=== PATIENT | male | born 1980 | race Caucasian/White ===

== ENCOUNTER 2020-06-22 15:06 | Outpatient (CLI) | payer OTHER, SELFPAY ==
--- NOTE | 2020-06-22 15:10 | ECG_ITS ---
Measurements Intervals [place] Rate: 87 P: 38 [place]: 155 QRS: -20 QRSD: 105 T: 11 QT: 358 QTc: 431 Interpretive Statements SINUS RHYTHM EARLY PRECORDIAL R/S TRANSITION MINIMAL Q WAVES- HIGH LATERAL LEADS BORDERLINE T WAVE ABNORMALITY- INFERIOR LEADS BORDERLINE ECG Electronically Signed On 06-22-2020 15:52:21 CDT by Peng Ponce D.O.
== END 2020-06-22 15:07 | disposition home or self-care (01) ==
LOC: ANHSURGERY 15:09
PROVIDERS: PCP Emergency Medicine; Visit Provider Otolaryngology
DX: I25.2 Old myocardial infarction (principal); R94.31 Abnormal electrocardiogram [ECG] [EKG]
CPT/HCPCS: 93005

== ENCOUNTER 2020-06-26 01:26 | Outpatient (CLI) | payer OTHER, SELFPAY ==
[2020-06-26 18:35] LABS: SARS-CoV-2 RNA PCR Negative
== END 2020-06-26 01:27 | disposition home or self-care (01) ==
LOC: ANHCOVIDDT 01:26
PROVIDERS: PCP Emergency Medicine; Visit Provider Otolaryngology
DX: Z01.812 Encounter for preprocedural laboratory examination (principal); Z11.59 Encounter for screening for other viral diseases
CPT/HCPCS: 87635; C9803; U0003

== ENCOUNTER 2020-06-28 01:12 | Day surgery (SDC) | payer OTHER, SELFPAY ==
[2020-06-15 10:47] VITALS: BMI 36.9
--- NOTE | 2020-06-26 08:11 | PM.HPGS ---
History of Present Illness History of Present Illness Consent: Risks, benefits, and alternatives have been discussed and questions answered. Patient agrees to proceed with procedure. Chief complaint: Sialadenitis Narrative: Ever Remy is a 40 year old male Who has bilateral submandibular swelling when he eats he has had a CT scan plan plan is to open up both the salivary gland ducts Review of Systems Review of Systems: All systems reviewed & are unremarkable except as noted in HPI and below PMFSH Social History Social History Smoking status: Never smoker Alcohol intake: current Drinks per week: 2 Spiritual care concerns: No Meds Home Medications and Allergies Home Medications Medication Instructions Recorded Confirmed Type acetaminophen 500 mg capsule 500 mg PO Q6H PRN 06/11/20 06/15/20 History clopidogrel 75 mg tablet 75 mg PO DAILY 06/11/20 06/15/20 History Vitamin B-12 1 tablet PO DAILY 06/15/20 06/15/20 History Vitamin D3 1 tablet PO DAILY 06/15/20 06/15/20 History Allergies Allergy/AdvReac Type Severity Reaction Status Date / Time No Known Allergies Allergy Verified 06/15/20 10:48
[2020-06-28] VITALS (7 sets, daily range): BP systolic 115–145; BP diastolic 66–82; PULSE 67–89; RESP 16–20; TEMP 36.4; O2SAT 96–99
--- NOTE | 2020-06-28 05:57 | WPDHPUPDATE1 ---
History and Physical Update Update Date/Time: 06/28/20 05:57 History and Physical has been reviewed, including an updated exam of the patient. There are NO changes in the patient's condition. Risks, benefits, and alternatives have been discussed and questions answered. Patient agrees to proceed with procedure.
[2020-06-28] MEDS: LACTATED RINGERS 1,000 ML 30 ML IV CONT (06:30)
--- NOTE | 2020-06-28 06:53 | P.PNAN_ITS ---
Anes - Initial Pre Proc Eval Procedure: Operation Date: 06/28/20 07:30 Proposed Procedures p Bilateral Sialodochoplasty - Arnaud Sanchez MD Date/Time: 06/28/20 06:53 Surgeon: Arnaud Sanchez MD Pre Op Diagnosis: Sialadenitis Patient Data Age: 40 Gender: M Height: 5 ft 9 in Weight: 116.4 kg Last Vital Signs Temp 97.5 F L 06/28/20 06:08 Pulse 67 06/28/20 06:08 Resp 20 06/28/20 06:08 BP 145/77 H 06/28/20 06:08 Pulse Ox 98 06/28/20 06:08 Allergies Allergy/AdvReac Type Severity Reaction Status Date / Time No Known Allergies Allergy Verified 06/28/20 06:44 Home Medications Medication Instructions Recorded Confirmed Type acetaminophen 500 mg capsule 500 mg PO Q6H PRN 06/11/20 06/28/20 History clopidogrel 75 mg tablet 75 mg PO DAILY 06/11/20 06/28/20 History Vitamin B-12 1 tablet PO DAILY 06/15/20 06/28/20 History Vitamin D3 1 tablet PO DAILY 06/15/20 06/28/20 History Patient hx anesthesia problems: none Family hx anesthesia problems: none [facility] Past Medical History Medical History (Updated 06/28/20 @ 06:53 by Ambrose Jimenez MD) CAD (coronary artery disease) has one stent KEYLA (obstructive sleep apnea) Social History Social History Smoking status: Never smoker Alcohol intake: current Drinks per week: 2 Spiritual care concerns: No Anes - Eval Final PreProcedure Day of Procedure 06/28/20 06:53 Patient weight: obese Heart: regular rate and rhythm Lungs: clear to auscultation Airway: Mallampati scale class III Neurological: alert and oriented Last oral intake: >/= 8 hours ASA classification: III Emergent: no Anesthetic plan: proceed Anesthesia type and monitoring: general ETT and standard monitoring Informed Consent: The patient's anesthetic plan and its attendant risks and benefits were discussed with the patient/family/POA. Questions were solicited and answers provided to the satisfaction of the patient/family/POA.
[2020-06-28] MEDS: LIDO 1%/EPINEPHRINE 1:100,000 20 ML VIAL INFILTRATE (07:15)
--- NOTE | 2020-06-28 07:44 | PM.PROC ---
Procedure Note - Detailed Date of procedure: 06/28/20 Pre-op diagnosis: Sialadenitis Bilateral sialoadenitis stone left salivary duct Post-op diagnosis: same Procedure performed: duct plasty on both sides removal stone left Description of procedure: patient was prepped and draped fashion general anesthesia on the left side the opening of the duct was ascertained and a pro placed in the duct open a large stone was removed on the left side the opening could not be found the area was opened up no stone was obtained patient awakened returned to recovery in good co Anesthesia: GLMA Surgeon: Arnaud Sanchez MD Estimated blood loss (mL): 10 Drains: No Packing: No Pathology: yes Complications: No immediate complications Condition: stable Disposition: PACU Findings: large stone left [place] duct
--- NOTE | 2020-06-28 08:42 | SUR.PHASEI ---
PT AWAKE AND ALERT. DENIES PAIN. STATES MILD HEADACHE. TOLERABLE. NO BLEEDING FROM MOUTH. PT TALKATIVE.
== END 2020-06-28 09:26 | disposition home or self-care (01) ==
PROVIDERS: PCP Emergency Medicine; Visit Provider Otolaryngology
PROC: (CPT 42699; principal; 2020-06-28 07:30)
DX: K11.20 Sialoadenitis, unspecified (principal); K11.5 Sialolithiasis; I25.10 Atherosclerotic heart disease of native coronary artery without angina pectoris; G47.33 Obstructive sleep apnea (adult) (pediatric); E66.9 Obesity, unspecified; Z68.37 Body mass index [BMI] 37.0-37.9, adult; Z79.02 Long term (current) use of antithrombotics/antiplatelets
CPT/HCPCS: 42699; 82365; 88300; J0330; J1100; J2250; J2405; J2704; J3010; J7120

== ENCOUNTER 2021-01-29 09:43 | Emergency (ER) | payer OTHER, SELFPAY ==
--- NOTE | 2021-01-29 10:16 | PC.NURSE ---
Patient was not seen at this facility. Called wrong triage number to be registered. Patient ended up being seen in [place] at their [facility]
== END 2021-01-29 10:19 | disposition left against medical advice (07) ==
PROVIDERS: Emergency Provider Nurse Practitioner
DX: Z53.21 Procedure and treatment not carried out due to patient leaving prior to being seen by health care provider (principal)
CPT/HCPCS: 99199

== ENCOUNTER 2021-01-29 10:06 | Emergency (ER) | payer OTHER, SELFPAY ==
[2021-01-29 10:12] VITALS: BP 134/95; PULSE 74; RESP 18; TEMP 36.5; O2SAT 100
--- NOTE | 2021-01-29 11:28 | ED.NAVMDI ---
HPI - Nausea/Vomiting/Diarrhea General Chief complaint: Nausea/Vomiting/Diarrhea Stated complaint: Diarrhea Time Seen by Provider: 01/29/21 11:17 Source: patient and RN notes reviewed Mode of arrival: ambulatory Limitations: no limitations History of Present Illness HPI Narrative: Patient presents today complaining of a 2-day history of nausea, vomiting, diarrhea. Last episode of vomiting was this morning. Last episode of diarrhea was this morning. States he vomited 2-3 times yesterday and had diarrhea more than 3 times yesterday as well. States his symptoms began 5 to 6 hours eating steak and shrimp at [facility] and believes there may be a correlation. No one else that ate lunch with him that day got sick. No one else in his household is sick. No blood or mucus in his stool. No fever or abdominal pain. Reports constant abdominal cramping. States he is still urinating. Reports he attempted to eat Romanian food last night. He has tried no gmry-taw-[id number] treatment prior to arrival. Related Data Home Medications Medication Instructions Recorded Confirmed acetaminophen 500 mg capsule 500 mg PO Q6H PRN 06/11/20 01/29/21 clopidogrel 75 mg tablet 75 mg PO DAILY 06/11/20 01/29/21 Vitamin B-12 1 tablet PO DAILY 06/15/20 01/29/21 Vitamin D3 1 tablet PO DAILY 06/15/20 01/29/21 Allergies Allergy/AdvReac Type Severity Reaction Status Date / Time No Known Allergies Allergy Verified 01/29/21 10:20 Review of Systems Review of Systems: Narrative: CONSTITUTIONAL: Denies body aches, fever, chills, or sweats. EYES: Denies visual changes, redness, or discharge. ENT: Denies rhinorrhea, congestion, sore throat, or otalgia. CARDIOVASCULAR: Denies chest pain, palpitations, or edema. RESPIRATORY: Denies cough or dyspnea. GASTROINTESTINAL: Denies abdominal pain. + Nausea, vomiting, diarrhea, abdominal cramping GENITOURINARY: Denies dysuria or hematuria. SKIN: Denies rash, itching, or wounds. MUSCULOSKELETAL: Denies back pain, joint pain, or myalgia. NEUROLOGIC: Denies headache, numbness, tingling, or weakness. PSYCH: Denies depression or anxiety. [facility] Past Medical History Medical History (Updated 01/29/21 @ 11:31 by Zaira Alexander, [facility], ) CAD (coronary artery disease) has one stent KEYLA (obstructive sleep apnea) Social History Social History Smoking status: Never smoker Alcohol intake: current Drinks per week: 2 Spiritual care concerns: No Comments At time of signature, I have reviewed and agree with nursing past medical, surgical, social and family history unless otherwise noted. Please see nursing chart for further information. There is no relevant family history pertinent to the presenting complaint Exam Narrative: Exam Narrative: GENERAL: Well-appearing, well-nourished, and in no acute distress. HEAD: Normocephalic, atraumatic. EYES: EOMI. No redness or drainage. Conjunctivae normal. ENT: Mucous membranes pink and moist. NECK: Normal AROM. Supple. No lymphadenopathy. CHEST: No respiratory distress. Clear to auscultation. HEART: Regular rate and rhythm. No murmur appreciated. Normal peripheral pulses. ABDOMEN: Soft, nontender, nondistended, hyperactive bowel sounds. MUSCULOSKELETAL: No bony tenderness. EXTREMITIES: Normal range of motion. No edema. SKIN: Warm, dry, no rash. Capillary refill normal. Normal skin turgor. NEURO: No focal deficits. Alert and oriented x3. Gait steady. PSYCH: Normal affect. No signs of depression or anxiety. Course Vital Signs Vital signs: Vital Signs Temperature 97.7 F 01/29/21 10:12 Pulse Rate 74 01/29/21 10:12 Respiratory Rate 18 01/29/21 10:12 Blood Pressure 134/95 H 01/29/21 10:12 Pulse Oximetry 100 01/29/21 10:12 Temperature 97.7 F 01/29/21 10:12 Pulse Rate 74 01/29/21 10:12 Respiratory Rate 18 01/29/21 10:12 Blood Pressure 134/95 H 01/29/21 10:12 Pulse Oximetry 10
== END 2021-01-29 11:35 | disposition home or self-care (01) ==
PROVIDERS: Emergency Provider Nurse Practitioner
DX: R11.2 Nausea with vomiting, unspecified (principal); R19.7 Diarrhea, unspecified; I25.10 Atherosclerotic heart disease of native coronary artery without angina pectoris; Z95.5 Presence of coronary angioplasty implant and graft; G47.33 Obstructive sleep apnea (adult) (pediatric)
CPT/HCPCS: 99211; G0463

== ENCOUNTER 2021-10-23 11:59 | Emergency (ER) | payer OTHER, SELFPAY ==
[2021-10-23 12:05] VITALS: BP 135/85; PULSE 80; RESP 16; TEMP 37.2; O2SAT 98
--- NOTE | 2021-10-23 12:10 | ED.URI ---
HPI - URI/Sore Throat General Chief Complaint: Upper Respiratory Infection Stated Complaint: Fever/Cough/Body Aches Time Seen by Provider: 10/23/21 12:10 Source: patient and RN notes reviewed History of Present Illness HPI Narrative: Patient is a 41-year-old male who presents the urgent care with complaints of fever, body aches, headache, sore throat, chest congestion, shortness of breath and cough. Patient states his symptoms started on Thursday and his and kids have now been showing symptoms over the last 24 hours. States that he has been taking cold and flu medication as well as ibuprofen. Patient has not had the Covid vaccine and did have a positive Covid contact at work. No other acute complaints. No acute distress noted. Patient aware of the plan of care. Some parts of this dictation were generated by voice recognition software and may contain typographical and/or grammatical inaccuracies. Related Data Home Medications Medication Instructions Recorded Confirmed acetaminophen 500 mg capsule 500 mg PO Q6H PRN 06/11/20 10/23/21 clopidogrel 75 mg tablet 75 mg PO DAILY 06/11/20 10/23/21 Vitamin B-12 1 tablet PO DAILY 06/15/20 10/23/21 Vitamin D3 1 tablet PO DAILY 06/15/20 10/23/21 aspirin 81 mg PO DAILY 10/23/21 10/23/21 atorvastatin 40 mg PO DAILY 10/23/21 10/23/21 ergocalciferol (vitamin D2) 1,250 mcg PO DAILY 10/23/21 10/23/21 ezetimibe 10 mg PO DAILY 10/23/21 10/23/21 ticagrelor [Brilinta] 10 mg PO DAILY 10/23/21 10/23/21 Allergies Allergy/AdvReac Type Severity Reaction Status Date / Time No Known Allergies Allergy Verified 10/23/21 12:05 Review of Systems Review of Systems: CONSTITUTIONAL: Reports of fever, chills, fatigue EYES: Denies visual changes, redness, or discharge. ENT: Reports of sore throat, chest congestion CARDIOVASCULAR: Denies chest pain, palpitations, or edema. RESPIRATORY: Reports of cough with dyspnea GASTROINTESTINAL: Denies abdominal pain, nausea, vomiting, or diarrhea. GENITOURINARY: Denies dysuria or hematuria. SKIN: Denies rash or itching. MUSCULOSKELETAL: Denies back pain, joint pain. Reports of body aches NEUROLOGIC: Denies headache, numbness, or weakness. All other systems reviewed are negative, except as documented in HPI. [facility] Past Medical History Medical History (Updated 10/23/21 @ 12:38 by EDISON Bhatia) CAD (coronary artery disease) has one stent KEYLA (obstructive sleep apnea) Social History Social History (System 10/23/21 @ 09:40 by Demetris Valadez) Smoking status: Never smoker Alcohol intake: current Drinks per week: 2 Spiritual care concerns: No Comments At the time of my signature, I reviewed and agree with the nursing past medical, surgical, social, and family history. There is no relevant family history pertinent to the patient complaint. Exam Narrative: GENERAL: This is a well-nourished, well-developed patient. Appears fatigued HEAD: normocephalic, atraumatic. EYES: PERRL. Sclera clear/white. Vision is grossly intact. EARS: External ears normal, auditory canals clear and without drainage, TMs normal without perforation. Hearing grossly intact. NOSE: External nose normal with no obvious nasal discharge, nares without redness, clear rhinorrhea. THROAT: Mucous membranes moist, moderate erythema to the posterior oropharynx with moderate postnasal drainage NECK: Neck supple CARDIOVASCULAR: Regular rate and rhythm without murmurs, gallops, or rubs. RESPIRATORY: Clear to auscultation. Breath sounds equal bilaterally. No wheezes, rales, or rhonchi. SKIN: warm, intact with no suspicious lesions or rash, good texture and turgor. NEURO: awake, alert, and oriented to person, place and time. There were no obvious focal neurologic abnormalities. EXTREMITIES: No clubbing, cyanosis, or edema. Course Vital Signs Vital signs: Vital Signs Temperature 98.9 F 10/23/21 12:05 Pulse Rate 80 10/23/21 12:05 Respiratory Rate 16 10/23/21 12:05 Blood P
[2021-10-23 12:19] VITALS: BP 135/85; PULSE 80; RESP 16; TEMP 37.2; O2SAT 98
== END 2021-10-23 12:40 | disposition home or self-care (01) ==
PROVIDERS: Emergency Provider Nurse Practitioner Family
DX: U07.1 COVID-19 (principal); I25.10 Atherosclerotic heart disease of native coronary artery without angina pectoris; G47.33 Obstructive sleep apnea (adult) (pediatric); Z95.5 Presence of coronary angioplasty implant and graft
CPT/HCPCS: 87426; 87804; 99213; C9803; G0463

== ENCOUNTER 2023-08-28 14:01 | Emergency (ER) | payer OTHER, SELFPAY ==
--- NOTE | ~2023-08-28 | XR_ITS ---
EXAMINATION: XR knee RT min 4V DATE: 08/28/2023 14:24 INDICATION: Right knee injury and pain. TECHNIQUE: 4 views of right knee were obtained. COMPARISON: None. FINDINGS: Bone alignment is normal. No fracture. There is mild osteoarthritis of medial and lateral c ompartments. No knee joint effusion. There is anterior knee soft tissue swelling. IMPRESSION: 1. Mild right knee osteoarthritis. Reviewed, dictated and finalized at location A.
[2023-08-28 14:07] VITALS: BP 141/76; PULSE 85; RESP 16; TEMP 37; O2SAT 98
--- NOTE | 2023-08-28 14:16 | ED.LOWEXIN ---
HPI - Extremity Injury (Lower) General Stated Complaint: Right knee pain History of Present Illness HPI Narrative: PATIENT PRESENTS WITH RIGHT KNEE PAIN. PATIENT STATES 2 WEEKS AGO HE INJURED HIS KNEE AT WORK WHEN HE JUMPED OFF OF A PLATFORM. PATIENT COMPLAINS OF PAIN TO THE INNER SIDE OF HIS RIGHT KNEE. NO SWELLING NO DEFORMITY NOTED PATIENT STATES IT HURTS WITH AMBULATION. Related Data Home Medications Medication Instructions Recorded Confirmed clopidogrel 75 mg tablet (Plavix) 75 mg PO DAILY 06/11/20 08/28/23 atorvastatin 40 mg tablet 40 mg PO DAILY 10/23/21 08/28/23 ezetimibe 10 mg tablet 10 mg PO DAILY 10/23/21 08/28/23 losartan 50 mg tablet 50 mg PO DAILY 08/28/23 08/28/23 Allergies Allergy/AdvReac Type Severity Reaction Status Date / Time No Known Allergies Allergy Verified 08/28/23 14:05 Review of Systems Review of Systems: CONSTITUTIONAL: DENIES FEVER, CHILLS, OR SWEATS. EYES: DENIES VISUAL CHANGES, REDNESS, OR DISCHARGE. ENT: DENIES RHINORRHEA, CONGESTION, SORE THROAT, OR OTALGIA. CARDIOVASCULAR: DENIES CHEST PAIN, PALPITATIONS, OR EDEMA. RESPIRATORY: DENIES COUGH OR DYSPNEA. GASTROINTESTINAL: DENIES ABDOMINAL PAIN, NAUSEA, VOMITING, OR DIARRHEA. GENITOURINARY: DENIES DYSURIA OR HEMATURIA. SKIN: DENIES RASH OR ITCHING. MUSCULOSKELETAL: DENIES BACK PAIN, JOINT PAIN, OR MYALGIA. NEUROLOGIC: DENIES HEADACHE, NUMBNESS, OR WEAKNESS. PSYCHIATRIC: DENIES ANXIETY OR DEPRESSION. [facility] Past Medical History Medical History (Updated 08/28/23 @ 14:31 by EDISON Hudson) CAD (coronary artery disease) has one stent KEYLA (obstructive sleep apnea) Social History Social History (System 10/23/21 @ 09:40 by Demetris Valadez) Smoking status: Never smoker Alcohol intake: current Drinks per week: 2 Spiritual care concerns: No Comments AT TIME OF SIGNATURE, AGREE WITH NURSING PAST MEDICAL, SURGICAL, SOCIAL AND FAMILY HISTORY. THERE IS NO RELEVANT FAMILY HISTORY PERTINENT TO THE PRESENTING COMPLAINT Exam Narrative: GENERAL: WELL-APPEARING, WELL-NOURISHED, AND IN NO ACUTE DISTRESS. HEAD: NORMOCEPHALIC, ATRAUMATIC. EYES: PERRLA AND EOMI. ENT: NARES CLEAR, NO RHINORRHEA OR EPISTAXIS. MUCOUS MEMBRANES MOIST. NECK: SUPPLE. CHEST: CLEAR TO AUSCULTATION. NO RESPIRATORY DISTRESS. HEART: REGULAR RATE AND RHYTHM. NO MURMUR HEARD. NORMAL PERIPHERAL PULSES. ABDOMEN: SOFT, NONTENDER, NONDISTENDED, NORMAL ACTIVE BOWEL SOUNDS. EXTREMITIES: NORMAL RANGE OF MOTION. NO EDEMA. SKIN INTACT. NO DEFORMITY. NORMAL ROM, HAS FULL EXTENSION AND FLEXION. COMPARTMENTS SOFT. NEGATIVE ANTERIOR, POSTERIOR DRAWER SIGNS ON TEST. NO CREPITUS. DP PULSE, NORMAL CAPILLARY REFILL MCMURRAYS, PAIN TO RIGHT MEDIAL AND DISTAL KNEE WITH KNEE FLEXION, INTERNAL AND EXTERNAL FOOT ROTATION.NO ERYTHEMA OR INCREASED WARMTH TO CALF. . SKIN: WARM, DRY, NO RASH. NEURO: NO FOCAL DEFICITS. ALERT AND ORIENTED X3. SHANA COMA SCALE EYE OPENING: SPONTANEOUS 4 SHANA COMA SCALE MOTOR: OBEYS COMMANDS 6 SAHNA COMA SCALE VERBAL: ORIENTED 5 SHANA COMA SCALE TOTAL 15 Course Course Level of Care: Express Care Visit Vital Signs Vital signs: Vital Signs Temperature 37.0 C 08/28/23 14:07 Pulse Rate 85 08/28/23 14:07 Respiratory Rate 16 08/28/23 14:07 Blood Pressure 141/76 H 08/28/23 14:07 Pulse Oximetry 98 08/28/23 14:07 Oxygen Delivery Room Air 08/28/23 14:07 Temperature 37.0 C 08/28/23 14:07 Pulse Rate 85 08/28/23 14:07 Respiratory Rate 16 08/28/23 14:07 Blood Pressure 141/76 H 08/28/23 14:07 Pulse Oximetry 98 08/28/23 14:07 Oxygen Delivery Room Air 08/28/23 14:07 PLEASE CLARIBEL SCHEDULE A FOLLOWUP VISIT WITH YOUR PERSONAL PHYSICIAN FOR FURTHER EVALUATION AND TREATMENT. INCLUDING RECHECK AND DISCUSSION OF YOUR BLOOD PRESSURE. IF YOUR SYMPTOMS PERSIST, CHANGE OR WORSEN SIGNIFICANTLY BEFORE YOU CAN CONTACT YOUR PERSONAL PHYSICIAN THEN PLEASE, WITHOUT DELAY, GO TO THE EMERGENCY DEPARTMENT FOR FURTHER BRIAN
[2023-08-28 14:18] VITALS: BP 141/76; PULSE 85; RESP 16; TEMP 37; O2SAT 98
== END 2023-08-28 14:35 | disposition home or self-care (01) ==
PROVIDERS: Emergency Provider Nurse Practitioner Family
DX: S86.811A Strain of other muscle(s) and tendon(s) at lower leg level, right leg, initial encounter (principal); M17.11 Unilateral primary osteoarthritis, right knee; I25.10 Atherosclerotic heart disease of native coronary artery without angina pectoris; Z79.899 Other long term (current) drug therapy; X58.XXXA Exposure to other specified factors, initial encounter; Y99.0 Civilian activity done for income or pay
CPT/HCPCS: 73564; 99213; G0463; L1830

== ENCOUNTER 2023-12-01 13:23 | Outpatient (CLI) | payer OTHER, SELFPAY ==
--- NOTE | ~2023-12-01 | MR_ITS ---
MRI of the right knee Clinical history: Pain Technique: Coronal proton density and proton density-weighted images, sagittal proton-density and T2 fat-sat images, and axial proton-density fat-saturated images were acquired. Findings: Anterior and posterior cruciate ligaments are intact. Medial collateral ligament and the la teral collateral ligament complex are intact. Popliteus tendon is intact. Medial and lateral menisci are intact, without evidence of tear. There is mild to moderate chondral thinning of the medial joint line. Articular cartilage in the late ral compartment and patellofemoral compartment is well preserved. Bone marrow signals are unremarkabl e. Extensor mechanism is intact. No significant joint effusion or Osuna's cyst. Impression: Mild to moderate chondral thinning of the medial joint line. No other significant findings. Reviewed, dictated and finalized at location . EOTYPE CASTER Impression: Mild to moderate chondral thinning of the medial joint line. No other significant findings.
== END 2023-12-01 13:24 | disposition home or self-care (01) ==
LOC: ANHIMG 13:23
PROVIDERS: Visit Provider Orthopaedic Surgery
DX: M23.91 Unspecified internal derangement of right knee (principal)
CPT/HCPCS: 73721